=== PATIENT | female | born 1975 | race Caucasian/White ===

== ENCOUNTER 2018-03-02 01:01 | Emergency (ER) | payer MEDICAID ==
--- NOTE | 2018-03-02 02:02 | ED Physician Documentation ---
History of Present Illness - Stated complaint Stated Complaint: HIGH BLOOD PRESSURE - Chief complaint Chief Complaint: Cardiac - History obtained from History obtained from: Patient, Family - History of Present Illness Timing: How many weeks ago (1) - Additonal information Additional information: 42-year-old previously well female has developed some upper respiratory symptoms with a cough and congestion about 1 week ago she took some Mucinex and then begin to get some pressure in her chest and went to see her doctor. She was noted to have some high blood pressure and was started on some propranolol as well and discontinued the Mucinex. She states that she has been drinking a lot of fluid and has been urinating a lot. The patient reports that she has some central chest pressure that is worse when she takes a deep breath and she feels it is making it difficult for her to take a deep breath. She also reports that she is feeling lightheaded and dizzy when she is up and around and this is 1 of the reasons she went to see her doctor. She also notes a headache. Review of Systems Constitutional: reports: Fatigue. denies: Fever, Chills, Myalgias Eyes: denies: Photophobia Ears: denies: Ear pain Nose: reports: Rhinorrhea / runny nose, Congestion Throat: denies: Sore throat Cardiac: reports: Chest pain / pressure. denies: Palpitations, Pedal edema, Calf pain Respiratory: reports: Cough. denies: Dyspnea GI: denies: Abdominal Pain, Nausea, Vomiting : denies: Dysuria, Frequency PD PAST MEDICAL HISTORY - Present Medications Home Medications: Ambulatory Orders Medication Instructions Recorded Confirmed RX: Propranolol [Inderal] 40 mg PO BID 03/02/18 03/02/18 - Allergies Allergies/Adverse Reactions: Allergies Allergy/AdvReac Type Severity Reaction Status Date / Time hydrocodone Allergy Emesis Verified 03/02/18 01:12 oxycodone Allergy Emesis Verified 03/02/18 01:12 PD ED PE NORMAL - Vitals Vital signs reviewed: Yes (hypertensive) - General General: Alert and oriented X 3, No acute distress, Well developed/nourished - HEENT HEENT: Atraumatic, PERRL, EOMI, Ears normal, Other (dry mucous membranes ) - Neck Neck: Supple, no meningeal sign, No bony TTP - Cardiac Cardiac: RRR, No murmur - Respiratory Respiratory: No respiratory distress, Clear bilaterally, Other (central chest wall tenderness to palpation ) - Abdomen Abdomen: Soft, Non tender - Back Back: No CVA TTP, No spinal TTP - Derm Derm: Normal color, Warm and dry, No rash - Extremities Extremities: No deformity, No edema - Neuro Neuro: Alert and oriented X 3, business intelligence architect 2-12 intact, No motor deficit, No sensory deficit, Normal speech Eye Opening: Spontaneous Motor: Obeys Commands Verbal: Oriented GCS Score: 15 - Psych Psych: Normal mood, Normal affect Results - Vitals Vitals: Vital Signs - 24 hr 03/02/18 03/02/18 01:07 04:16 Temperature 36.6 C Heart Rate 67 66 Respiratory 17 16 Rate Blood Pressure 155/97 H 136/92 H O2 Saturation 99 98 Oxygen O2 Source Room air - EKG (time done) 0132 Rate: Rate (enter#) (57) Rhythm: NSR Ischemia: Normal ST segments Compare to prior EKG: Old EKG unavailable Computer interpretation: Agree with computer - Labs Labs: Laboratory Tests 03/02/18 03/02/18 03/02/18 02:29 02:29 02:29 WBC 9.0 RBC 4.88 Hgb 14.9 Hct 43.7 MCV 89.5 MCH 30.5 MCHC 34.1 RDW 13.0 Plt Count 269 MPV 8.0 Neut # (Auto) 4.0 Lymph # (Auto) 4.[address] [place] # (Auto) 0.7 Eos # (Auto) 0.2 Baso # (Auto) 0.1 Absolute Nucleated RBC 0.01 Nucleated RBC % 0.1 Sodium 136 Potassium 3.9 Chloride 106 Carbon Dioxide 23 Anion Gap 7.0 BUN 14 Creatinine 0.8 Estimated GFR (MDRD) 79 L Glucose 100 Calcium 9.4 Total Bilirubin 0.4 AST 33 ALT 34 Alkaline Phosphatase 58 Troponin I < 0.04 Total Protein 8.1 Albumin 4.4 Globulin 3.7 Albumin/Globulin Ratio 1.2 Lipase 29 - Rads (name of study) 2 veiw chest Radiology: Prelim report reviewed (Impression: Normal two-view chest radiography.), EMP read indepedently, See rad report Procedures - IVC sono (time) 0205 Bedside IVC sono: IVC measures (cm) (1.18), IVC collapsed c insp (cm) (complete), Dehydration (est 1 liter deficit) PD MEDICAL DECISION MAKING - ED course Complexity details: reviewed results, re-evaluated patient, considered differential, d/w patient, d/w family ED course: 42 y/o previously well female presents to the ED with headache, elevated blood pressure and chest pressure. She is found to be dehydrated on interrogation of the IVC and she has anterior chest wall tenderness reproducing her symptoms. She relates to me that on a prior exam she had fluid behind the TM and I do not see this today so assume resolved infection. She is administered IV saline and decadron for the pleuritic pain while work up is in progress. The work up is without specificity and the patient has marked improvement. Departure - Departure Disposition: 01 Home, Self Care Clinical Impression: Pleurisy Condition: Stable Instructions: ED Chest Pain Pleurisy Follow-Up: [facility] [Provider Group] Discharge Date/Time: 03/02/18 04:30
[2018-03-02] MEDS ORDERED: DEXAMETHASONE 10 MG/ML VIAL IVP STA (02:14)
[2018-03-02] MEDS ORDERED: SODIUM CHLORIDE 0.9% 1,000 ML IV ONE (02:14)
[2018-03-02 02:42] LABS: BASOPHILS # (AUTO) 0.1 10^3/uL (0.0-0.1); BASOPHILS % (AUTO) 0.9 %; EOSINOPHILS # (AUTO) 0.2 10^3/uL (0.0-0.7); HGB - HEMOGLOBIN 14.9 g/dL (12.0-16.0); LYMPHOCYTES % (AUTO) 44.4 %; MEAN CORPUSCULAR HEMOGLOBIN 30.5 pg (27.0-31.0); MEAN CORPUSCULAR HGB CONC 34.1 g/dL (32.0-36.0); MEAN CORPUSCULAR VOLUME 89.5 fL (81.0-99.0); MONOCYTES # (AUTO) 0.7 10^3/uL (0.0-1.0); MONOCYTES % (AUTO) 7.9 %; NEUTROPHILS % (AUTO) 44.8 %; PLT - PLATELET COUNT 269 10^3/uL (130-450); RED BLOOD COUNT 4.88 10^6/uL (4.20-5.40)
[2018-03-02 02:47] LABS: ALBUMIN 4.4 g/dL (3.2-5.5); ALBUMIN/GLOBULIN RATIO 1.2 (1.0-2.2); BILIRUBIN,TOTAL 0.4 mg/dL (0.2-1.0); CALCIUM 9.4 mg/dL (8.5-10.3); CREATININE 0.8 mg/dL (0.4-1.0); TOTAL PROTEIN 8.1 g/dL (6.7-8.2)
--- NOTE | 2018-03-02 02:57 | XRAY Report ---
Reason: central chest pressure Procedure Date: 03/02/2018 Accession Number: [id number] / [id number] Procedure: XR - Chest 2 View X-Ray CPT Code: 85396 FULL RESULT: EXAM: CHEST RADIOGRAPHY EXAM DATE: 03/02/2018 02:20 AM. CLINICAL HISTORY: Central chest pressure. COMPARISON: None. TECHNIQUE: 2 views. FINDINGS: Lungs/Pleura: No focal opacities evident. No pleural effusion. No pneumothorax. Normal volumes. Mediastinum: Heart and mediastinal contours are unremarkable. Other: None. IMPRESSION: Normal 2-view chest radiography. RADIA
[2018-03-02 04:17] VITALS: BP 136/92
== END 2018-03-02 04:30 | disposition home or self-care (01) ==
LOC: ED 01:01
DX: R09.1 Pleurisy (principal); E86.0 Dehydration; R03.0 Elevated blood-pressure reading, without diagnosis of hypertension
CPT/HCPCS: 36415; 71046; 80053; 83690; 84484; 85025; 93005; 96361; 96374; 99283; 99284

== ENCOUNTER 2018-03-08 11:09 | Outpatient (CLI) | payer MEDICAID ==
[2018-03-08 19:30] LABS: BASOPHILS % (AUTO) 0.5 %; EOSINOPHILS # (AUTO) 0.1 10^3/uL (0.0-0.7); EOSINOPHILS % (AUTO) 1.3 %; HGB - HEMOGLOBIN 14.9 g/dL (12.0-16.0); LYMPHOCYTES # (AUTO) 3.5 10^3/uL (1.5-3.5); LYMPHOCYTES % (AUTO) 35.3 %; MEAN CORPUSCULAR HGB CONC 32.5 g/dL (32.0-36.0); MEAN CORPUSCULAR VOLUME 92.3 fL (81.0-99.0); MEAN PLATELET VOLUME 8.9 fL (7.9-10.8); MONOCYTES # (AUTO) 0.5 10^3/uL (0.0-1.0); MONOCYTES % (AUTO) 4.7 %; NEUTROPHILS # (AUTO) 5.8 10^3/uL (1.5-6.6); NEUTROPHILS % (AUTO) 58.2 %; PLT - PLATELET COUNT 266 10^3/uL (130-450); RED BLOOD COUNT 4.98 10^6/uL (4.20-5.40); WHITE BLOOD COUNT 9.9 x10^3/uL (4.8-10.8)
[2018-03-08 20:03] LABS: ALBUMIN 4.1 g/dL (3.2-5.5); ALBUMIN/GLOBULIN RATIO 1.2 (1.0-2.2); ALKALINE PHOSPHATASE 56 IU/L (42-121); ALT ALANINE AMINOTRANSFERASE 29 IU/L (10-60); AST ASPARTATE AMINOTRANSFERASE 23 IU/L (10-42); BILIRUBIN,TOTAL 0.6 mg/dL (0.2-1.0); BUN - BLOOD UREA NITROGEN 12 mg/dL (6-20); CALCIUM 8.9 mg/dL (8.5-10.3); CARBON DIOXIDE - CO2 22 mmol/L (21-32); CHLORIDE 103 mmol/L (101-111); CHOL/HDL RATIO 6.2 (<4.4); CHOLESTEROL 255 mg/dL; CREATININE 0.6 mg/dL (0.4-1.0); GFR - MDRD 111 (>89); GLUCOSE 91 mg/dL (70-100); HDL CHOLESTEROL 41 mg/dL; LDL CHOLESTEROL,CALCULATED 162 mg/dL; SODIUM 133 mmol/L (135-145); TOTAL PROTEIN 7.5 g/dL (6.7-8.2); VLDL CHOLESTEROL 52 mg/dL
[2018-03-08 20:27] LABS: PLATELET ESTIMATE, MANUAL NORMAL (130-450,000) (NORMAL); PLATELET MORPHOLOGY NORMAL APPEARANCE (NORMAL); RBC MORPHOLOGY (MULTIPLE) NORMAL APPEARANCE (NORMAL)
== END 2018-03-08 11:10 ==
LOC: LAB.N 11:09
PROVIDERS: ATTEND Nurse Practitioner Gerontology
DX: Z13.9 Encounter for screening, unspecified (principal); E78.2 Mixed hyperlipidemia; I10 Essential (primary) hypertension
CPT/HCPCS: 36415; 80053; 80061; 83721; 84443; 85025

== ENCOUNTER 2018-03-30 14:33 | Outpatient (CLI) | payer MEDICAID ==
--- NOTE | 2018-04-02 08:58 | Mammography Report ---
Reason: SCREENING MAMMO Procedure Date: 03/30/2018 Accession Number: [id number] / [id number] Procedure: JACEY - Screening Mammo w/Leif CPT Code: FULL RESULT: EXAM: Screening Mammo w/Leif DATE: 03/30/2018 3:11 PM CLINICAL HISTORY: Screening encounter. No known risk factors. TECHNIQUE: Bilateral CC and MLO views were obtained. COMPARISON: Baseline mammogram. FINDINGS: The breasts demonstrate scattered fibroglandular densities bilaterally. No suspicious masses, clustered microcalcifications, or regions of architectural distortion are identified. IMPRESSION: Negative examination RECOMMENDATION: Routine annual screening unless otherwise clinically indicated. BIRADS CATEGORY 1: Negative STANDARD QUALIFYING STATEMENTS: 1. This examination was not reviewed with the aid of Computer-Aided Detection (CAD). 2. A negative or benign imaging report should not preclude biopsy if clinically suspicious findings are present. 3. Dense breasts may obscure an underlying neoplasm. 4. This examination was reviewed with the aid of 3D breast imaging (tomosynthesis).
== END 2018-03-30 14:34 | disposition home or self-care (01) ==
LOC: DI 14:33
PROVIDERS: ATTEND Nurse Practitioner Gerontology
DX: Z12.39 Encounter for other screening for malignant neoplasm of breast (principal)
CPT/HCPCS: 77063; 77067

== ENCOUNTER 2018-11-01 08:00 | Outpatient (CLI) | payer MEDICAID ==
[2018-11-01 18:57] LABS: ALBUMIN/GLOBULIN RATIO 1.1 (1.0-2.2); ALKALINE PHOSPHATASE 65 IU/L (42-121); ALT ALANINE AMINOTRANSFERASE 23 IU/L (10-60); AST ASPARTATE AMINOTRANSFERASE 20 IU/L (10-42); BILIRUBIN,TOTAL 0.8 mg/dL (0.2-1.0); BUN - BLOOD UREA NITROGEN 12 mg/dL (6-20); CARBON DIOXIDE - CO2 22 mmol/L (21-32); CHLORIDE 106 mmol/L (101-111); CHOL/HDL RATIO 5.6 (<4.4); CHOLESTEROL 236 mg/dL; CREATININE 0.7 mg/dL (0.4-1.0); GFR - MDRD 92 (>89); GLUCOSE 100 mg/dL (70-100); HDL CHOLESTEROL 42 mg/dL; LDL CHOLESTEROL,CALCULATED 155 mg/dL; LDL/HDL RATIO 3.7 (<4.4); SODIUM 138 mmol/L (135-145); TOTAL PROTEIN 7.7 g/dL (6.7-8.2); VLDL CHOLESTEROL 39 mg/dL
== END 2018-11-01 23:59 | disposition home or self-care (01) ==
LOC: LAB.WCP 08:00
PROVIDERS: ATTEND Nurse Practitioner Gerontology
DX: E78.2 Mixed hyperlipidemia (principal); I10 Essential (primary) hypertension
CPT/HCPCS: 36415; 80053; 80061; 83721

== ENCOUNTER 2019-01-24 11:38 | Outpatient (CLI) | payer MEDICAID ==
--- NOTE | 2019-01-24 13:48 | XRAY Report ---
Reason: CERVICAL RADICULOPATHY Procedure Date: 01/24/2019 Accession Number: [id number] / [id number] Procedure: XRN - Cervical Spine 2 View CPT Code: FULL RESULT: EXAM: CERVICAL SPINE RADIOGRAPHY EXAM DATE: 01/24/2019 11:56 AM. CLINICAL HISTORY: Cervical radiculopathy. COMPARISONS: None. TECHNIQUE: 3 views. FINDINGS: Alignment: Loss of normal cervical lordosis. Bones: The cervical vertebral bodies and posterior elements are well visualized from the skull base through C7-T1. No fractures or bone lesions. Disks: No significant disk height narrowing. No subluxation. Facets: No degenerative disease. Soft Tissues: Normal. No prevertebral soft tissue swelling. The visualized lung apices are clear. IMPRESSION: 1. Loss of normal cervical lordosis. 2. Otherwise unremarkable exam. RADIA
== END 2019-01-24 11:39 | disposition home or self-care (01) ==
LOC: DI.N 11:38
PROVIDERS: ATTEND Family Medicine
DX: M54.12 Radiculopathy, cervical region (principal)
CPT/HCPCS: 72040

== ENCOUNTER 2022-07-08 11:31 | Emergency (ER) | payer MEDICAID ==
[2022-07-08 12:21] LABS: BASOPHILS % (AUTO) 0.4 %; EOSINOPHILS # (AUTO) 0.2 10^3/uL (0.0-0.7); EOSINOPHILS % (AUTO) 1.4 %; HCT - HEMATOCRIT 45.5 % (37.0-47.0); MEAN CORPUSCULAR HEMOGLOBIN 31.1 pg (27.0-31.0); MEAN CORPUSCULAR VOLUME 94.2 fL (81.0-99.0); MEAN PLATELET VOLUME 10.1 fL (7.9-10.8); MONOCYTES # (AUTO) 0.6 10^3/uL (0.0-1.0); MONOCYTES % (AUTO) 5.6 %; NEUTROPHILS # (AUTO) 7.2 10^3/uL (1.5-6.6); NEUTROPHILS % (AUTO) 65.3 %; PLT - PLATELET COUNT 251 10^3/uL (130-450); RED BLOOD COUNT 4.83 10^6/uL (4.20-5.40); RED CELL DISTRIBUTION WIDTH 12.2 % (12.0-15.0); WHITE BLOOD COUNT 11.1 x10^3/uL (4.8-10.8)
[2022-07-08 12:32] LABS: ALBUMIN 4.2 g/dL (3.2-5.5); ALBUMIN/GLOBULIN RATIO 1.2 (1.0-2.2); BILIRUBIN,TOTAL 0.4 mg/dL (0.2-1.0); CREATININE 0.7 mg/dL (0.4-1.0); POTASSIUM 4.1 mmol/L (3.5-5.0); TOTAL PROTEIN 7.8 g/dL (6.7-8.2)
[2022-07-08 12:57] LABS: BILIRUBIN,URINE NEGATIVE (NEGATIVE); GLUCOSE, URINE (UA) NEGATIVE (NEGATIVE); KETONES,URINE (UA) NEGATIVE (NEGATIVE); LEUKOCYTE ESTERASE, URINE NEGATIVE (NEGATIVE); NITRITE,URINE NEGATIVE (NEGATIVE); OCCULT BLOOD,URINE NEGATIVE (NEGATIVE); PH,URINE 5.5 PH (5.0-7.5); PROTEIN,URINE NEGATIVE (NEGATIVE); UROBILINOGEN,URINE 0.2 (NORMAL) E.U./dL (NORMAL)
[2022-07-08 12:59] LABS: CLARITY,URINE CLEAR (CLEAR); HCG UR QUAL NEGATIVE
[2022-07-08] MEDS ORDERED: KETOROLAC 30 MG/ML VIAL IVP STA (13:06)
--- NOTE | 2022-07-08 13:09 | ED Physician Documentation ---
History of Present Illness - Stated complaint Stated Complaint: LOWER BACK PX - Chief complaint Chief Complaint: Abd Pain - Additonal information Additional information: 46-year-old female presents to the emergency department for evaluation of right lower back pain that radiates to her anterior lower abdomen. Pain began about a week ago. She reports it began at rest. It has waxed and waned in severity though over the last few days has been uncontrollable. She has tried Tylenol and ibuprofen without relief of symptoms. Reports allergies to Vicodin and Percocet. Past surgical history most significant for only. Denies dysuria urgency or frequency. No nausea or vomiting. Pain is not improved with micturition. Denies constipation. No previous history of renal colic. 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 - Present Medications Home Medications: Ambulatory Orders Medication Instructions Recorded Confirmed Propranolol [Inderal] 40 mg PO BID 03/02/18 03/02/18 Cyclobenzaprine [Flexeril] 10 mg PO TID PRN #20 tablet 07/08/22 Ibuprofen [Motrin] 600 mg PO Q6H PRN #30 tab 07/08/22 - Allergies Allergies/Adverse Reactions: Allergies Allergy/AdvReac Type Severity Reaction Status Date / Time hydrocodone Allergy Emesis Verified 07/08/22 11:46 oxycodone Allergy Emesis Verified 07/08/22 11:46 - Social History Does the pt smoke?: Yes Smoking Status: Current some day smoker Does the pt drink ETOH?: Yes Does the pt have substance abuse?: No - POLST Patient has POLST: No PD ED PE NORMAL - General General: Alert and oriented X 3, Well developed/nourished. No: No acute distress (Appears uncomfortable with any movement in the low back) - HEENT HEENT: PERRL - Neck Neck: Supple, no meningeal sign, No adenopathy - Cardiac Cardiac: RRR, No murmur - Respiratory Respiratory: No respiratory distress, Clear bilaterally - Abdomen Abdomen: Normal bowel sounds, Soft. No: Non tender (Tenderness in the right lower quadrant. No guarding or rebound.) - Back Back: No CVA TTP, No spinal TTP. No: Other (Mild tenderness elicited with palpation of the right lower paraspinous muscles just above the SI joint. No rash.) - Derm Derm: Normal color, Warm and dry, No rash - Extremities Extremities: No deformity - Neuro Neuro: Alert and oriented X 3, tray server 2-12 intact Eye Opening: Spontaneous Motor: Obeys Commands Verbal: Oriented GCS Score: 15 Results - Vitals Vitals: Vital Signs - 24 hr 07/08/22 11:43 Temperature 36.3 C L Heart Rate 73 Respiratory 16 Rate Blood Pressure 164/76 H O2 Saturation 97 Oxygen O2 Source Room air - Labs Labs: Laboratory Tests 07/08/22 07/08/22 07/08/22 11:55 12:11 12:11 WBC 11.1 H RBC 4.83 Hgb 15.0 Hct 45.5 MCV 94.2 MCH 31.1 H MCHC 33.0 RDW 12.2 Plt Count 251 MPV 10.1 Neut # (Auto) 7.2 H Lymph # (Auto) 3.0 [place] # (Auto) 0.6 Eos # (Auto) 0.2 Baso # (Auto) 0.0 Absolute Nucleated RBC 0.00 Nucleated RBC % 0.0 Sodium 136 Potassium 4.1 Chloride 108 Carbon Dioxide 21 Anion Gap 7.0 BUN 13 Creatinine 0.7 Estimated GFR (MDRD) 91 Glucose 97 Calcium 9.0 Total Bilirubin 0.4 AST 23 ALT 28 Alkaline Phosphatase 54 Total Protein 7.8 Albumin 4.2 Globulin 3.6 Albumin/Globulin Ratio 1.2 Lipase 37 Urine Color YELLOW Urine Clarity CLEAR Urine pH 5.5 Ur Specific [place] 1.025 Urine Protein NEGATIVE Urine Glucose (UA) NEGATIVE Urine Ketones NEGATIVE Urine Occult Blood NEGATIVE Urine Nitrite NEGATIVE Urine Bilirubin NEGATIVE Urine Urobilinogen 0.2 (NORMAL) Ur Leukocyte Esterase NEGATIVE Ur Microscopic Review NOT INDICATED Urine Culture Comments NOT INDICATED Urine HCG, Qual NEGATIVE - Rads (name of study) CT abd Relevant Findings:: Final report received (No acute abnormality. No nephrolithiasis. Normal appendix.) PD Medical Decision Making - ED course Complexity details: reviewed results, re-evaluated patient, considered differential, d/w patient ED course: Well-appearing 46-year-old female presents to the emergency department for evaluation of acute right low back pain with radiation to her right lower anterior abdomen. Symptoms have been present for about a week. No falls or trauma. No fevers. No urinary symptoms. Here in the emergency department we did obtain a CBC electrolytes and urinalysis. Per my interpretation no acute worrisome findings. On exam there was some mild tenderness elicited in the right lower quadrant though no guarding or rebound. There was significant tenderness elicited just above the SI joint of the right low back. I suspected musculoskeletal pain or low back strain but given the radiation to the anterior abdomen I did want to rule out acute appendicitis or an obstructing urinary stone. Subsequently a CT of the abdomen was completed that showed no acute findings specifically no appendicitis or nephro/ureterolithiasis. Here in the emergency department the patient was administered 30 mg of Toradol IV with good relief of symptoms. I discussed with the patient the essentially negative labs and CT imaging findings. At this time she will be discharged home with recommendation to take 600 mg of Motrin with food 2-3 times a day and nighttime Flexeril. If not markedly improved over the next week or so may benefit from referral to physical therapy. Otherwise emergent return precautions otherwise discussed Departure - Departure Disposition: 01 Home, Self Care Clinical Impression: Right low back pain Qualifiers: Chronicity: acute Sciatica presence: without sciatica Qualified Code(s): M54.50 - Low back pain, unspecified Condition: Stable Record reviewed to determine appropriate education?: Yes Prescriptions: Cyclobenzaprine [Flexeril] 10 mg PO TID PRN #20 tablet PRN Reason: Spasms Ibuprofen [Motrin] 600 mg PO Q6H PRN #30 tab PRN Reason: Pain Comments: Zandra you came to the emergency department because you have begun having pain in your right lower back that radiates to your lower anterior abdomen. Here in the emergency department we did do a CBC, electrolytes and a urinalysis. These were all essentially normal. However as there was concern that the cause your pain could be due to an obstructing ureter stone or even acute appendicitis a CT of the abdomen was completed. The CT was also essentially normal. There were no findings of appendicitis, nephrolithiasis or broken bones. As we discussed I suspect that you have low back strain. In general with lumbar sprain and strain it is important that you stay mobile and walk is much as possible. I do recommend you take ibuprofen 600 mg with food 2-3 times a day. This was sent to the [facility] drug. I am also making the recommendation that you use Flexeril mostly at nighttime as it can cause dizziness. This is a muscle relaxer. If you find that your symptoms or not getting better over the next week or so please follow-up with your primary care provider. You may benefit from referral to physical therapy. Return sooner to the emergency department if you develop fevers, have worsening symptoms, uncontrolled nausea, vomiting or bloody stools.
[2022-07-08] MEDS ORDERED: iohexoL-300 100 ML VIAL ONE (13:38)
--- NOTE | 2022-07-08 14:32 | CT Report ---
PROCEDURE: ABDOMEN/PELVIS W INDICATIONS: right low back/RLQ pain; ? stone vs appy CONTRAST: 100ml omni 300 TECHNIQUE: After the administration of intravenous contrast, 5 mm thick sections acquired from the diaphragms to the symphysis. 5 mm thick coronal and sagittal reformats were acquired. For radiation dose reducti on, the following was used: automated exposure control, adjustment of mA and/or kV according to sarah ent size. COMPARISON: None. FINDINGS: Image quality: Excellent. ABDOMEN: Lung bases: Lung bases are clear. Heart size is normal. Solid organs: Liver and spleen are normal in size and enhancement. Gallbladder is unremarkable Vinayak iary system is non dilated. Pancreas enhances normally. No adrenal nodules. Kidneys demonstrate no rmal size and enhancement, without hydronephrosis. Peritoneum and bowel: Bowel loops demonstrate normal wall thickness and caliber. No free fluid or a ir. Normal appendix. Nodes and vessels: No retroperitoneal or mesenteric adenopathy by size criteria. Aorta and inferior vena cava are normal in size. Miscellaneous: No ventral hernias. PELVIS: Genitourinary: Bladder wall thickness is normal. Right-sided corpus luteum. Miscellaneous: No inguinal hernias or adenopathy. Bones: No suspicious bony lesions. No vertebral body compression fractures. IMPRESSION: No acute abnormality. No nephrolithiasis. Normal appendix. Reviewed by: Osmar Chand on 07/08/2022 2:31 PM PDT Approved by: Osmar Chand on 07/08/2022 2:31 PM PDT Station ID: [id number]
[2022-07-08 14:57] VITALS: BP 118/74
[2022-07-08] MEDS ORDERED: iohexoL-300 100 ML VIAL IVP ONE (19:02)
== END 2022-07-08 15:06 | disposition home or self-care (01) ==
LOC: ED 11:31
DX: M54.50 Low back pain, unspecified (principal); F17.200 Nicotine dependence, unspecified, uncomplicated
CPT/HCPCS: 36415; 74177; 80053; 81003; 81025; 83690; 85025; 96374; 99284; Q9967; 81001; 87086

== ENCOUNTER 2022-09-26 11:33 | Outpatient (CLI) | payer MEDICAID ==
[2022-09-26 17:59] LABS: BASOPHILS % (AUTO) 0.4 %; EOSINOPHILS # (AUTO) 0.2 10^3/uL (0.0-0.7); EOSINOPHILS % (AUTO) 2.5 %; HCT - HEMATOCRIT 46.3 % (37.0-47.0); HGB - HEMOGLOBIN 14.9 g/dL (12.0-16.0); LYMPHOCYTES # (AUTO) 2.8 10^3/uL (1.5-3.5); LYMPHOCYTES % (AUTO) 29.1 %; MEAN CORPUSCULAR HEMOGLOBIN 30.8 pg (27.0-31.0); MEAN CORPUSCULAR HGB CONC 32.2 g/dL (32.0-36.0); MEAN CORPUSCULAR VOLUME 95.9 fL (81.0-99.0); MEAN PLATELET VOLUME 10.7 fL (7.9-10.8); MONOCYTES # (AUTO) 0.5 10^3/uL (0.0-1.0); NEUTROPHILS # (AUTO) 5.9 10^3/uL (1.5-6.6); NEUTROPHILS % (AUTO) 62.8 %; PLT - PLATELET COUNT 245 10^3/uL (130-450); RED BLOOD COUNT 4.83 10^6/uL (4.20-5.40); WHITE BLOOD COUNT 9.4 x10^3/uL (4.8-10.8)
[2022-09-26 18:35] LABS: ALKALINE PHOSPHATASE 60 IU/L (42-121); ALT ALANINE AMINOTRANSFERASE 22 IU/L (10-60); AST ASPARTATE AMINOTRANSFERASE 19 IU/L (10-42); BILIRUBIN,TOTAL 0.5 mg/dL (0.2-1.0); BUN - BLOOD UREA NITROGEN 11 mg/dL (6-20); CARBON DIOXIDE - CO2 28 mmol/L (21-32); CHLORIDE 104 mmol/L (101-111); CHOLESTEROL 240 mg/dL; CREATININE 0.8 mg/dL (0.4-1.0); GFR - MDRD 78 (>89); GLUCOSE 95 mg/dL (70-100); HDL CHOLESTEROL 48 mg/dL; LDL CHOLESTEROL,CALCULATED 159 mg/dL; LDL/HDL RATIO 3.3 (<4.4); POTASSIUM 4.5 mmol/L (3.5-5.0); SODIUM 138 mmol/L (135-145); TRIGLYCERIDES 164 mg/dL; VLDL CHOLESTEROL 33 mg/dL
== END 2022-09-26 11:34 | disposition home or self-care (01) ==
LOC: LAB.N 11:33
PROVIDERS: ATTEND Nurse Practitioner
DX: Z00.00 Encounter for general adult medical examination without abnormal findings (principal); E78.2 Mixed hyperlipidemia
CPT/HCPCS: 36415; 80053; 80061; 83721; 85025

== ENCOUNTER 2023-10-10 03:00 | Emergency (ER) | payer MEDICAID ==
[2023-10-10] MEDS: PROPARACAINE 0.5% OPHTH DROPS 15 ML RIGHTEYE STA (03:14)
[2023-10-10 03:15] VITALS: BP 144/80; O2SAT 98
--- NOTE | 2023-10-10 03:51 | ED Physician Documentation ---
PD HPI HEENT - Stated complaint Stated Complaint: OBJECT IN L EYE - Chief complaint Chief Complaint: Heent - History obtained from History obtained from: Patient - Additional information Additional information: The patient comes to the emergency department with chief complaint of left I have irritation that started around 9:00 last night. She states that she is allergic to cat hair that she has cut her over her close because she has cats. She went to brush something off her face and felt as though something went in her eye. She thinks it might have been a cat hair but though she tried looking in the mirror and having her family look in her eye, she could not find anything in her eye. She states her eye lares a lot and then she tried washing it out but the sensation did not get better but only worse. The patient finally tried going to bed to see if the irritation and pain will get better but it did not. She is finally come here because she cannot sleep because of the discomfort. Estrella wilkinson has not been ill recently. She does not wear contacts. No other complaints at this time. 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 Home Medications: Ambulatory Orders Medication Instructions Recorded Confirmed Propranolol [Inderal] 40 mg PO BID 03/02/18 03/02/18 Cyclobenzaprine [Flexeril] 10 mg PO TID PRN #20 tablet 07/08/22 Ibuprofen [Motrin] 600 mg PO Q6H PRN #30 tab 07/08/22 Gentamicin 0.3% Ophth Drops 1 drops OPTH BID #5 ml 10/10/23 [Garamycin] - Allergies Allergies/Adverse Reactions: Allergies Allergy/AdvReac Type Severity Reaction Status Date / Time hydrocodone Allergy Emesis Verified 10/10/23 03:07 oxycodone Allergy Emesis Verified 10/10/23 03:07 - Social History Does the pt smoke?: Yes Smoking Status: Current every day smoker Does the pt drink ETOH?: Yes Does the pt have substance abuse?: No - POLST Patient has POLST: No PD ED PE NORMAL - Vitals Vital signs reviewed: Yes - General General: Alert and oriented X 3, No acute distress, Well developed/nourished - HEENT HEENT: Atraumatic, PERRL, EOMI, Moist mucous membranes, Other (Moderately injec em left eye with tearing, no other discharge. No foreign body noted with magnification and bright light. Lids everted for exam. Fluorescein exam negative.) - Neck Neck: Supple, no meningeal sign - Respiratory Respiratory: No respiratory distress - Derm Derm: Warm and dry - Extremities Extremities: No deformity - Neuro Neuro: Alert and oriented X 3 - Psych Psych: Normal mood, Normal affect Results - Vitals Vitals: Vital Signs - 24 hr 10/10/23 03:05 Temperature 36.2 C L Heart Rate 77 Respiratory 18 Rate Blood Pressure 144/80 H O2 Saturation 98 Oxygen O2 Source Room air PD Medical Decision Making - ED course Complexity details: considered differential, d/w patient ED course: I discussed with the patient that I do not see any evidence not only of a foreign body but even of a scratch or abrasion. I do not know what is causing her discomfort, though it is possible that there is a hair that has made its way up into the recesses of her eye. The patient's eye has been irrigated with Fransisco lens and 500 cc of 0.9 normal saline. The patient is found great relief with the proparacaine drops and remains to be seen whether her symptoms will be improved once this wears off. I will start the patient on antibiotic drops as a precaution and I have given her the contact information for the ophthalmology clinic, should she continue to have symptoms after the next week. There is no evidence of a potentially vision-compromising emergency and I feel the patient is stable for discharge home. We have discussed the usual indications for return. Departure - Departure Disposition: 01 Home, Self Care Clinical Impression: Foreign body sensation, left eye Acute conjunctivitis Qualifiers: Acute conjunctivitis type: unspecified Laterality: left Qualified Code(s): H10.32 - Unspecified acute conjunctivitis, left eye Condition: Stable Instructions: ED Conjunctivitis Nonspecific Follow-Up: Missael Garces MD [Provider Admit Priv/Credential] - Prescriptions: Gentamicin 0.3% Ophth Drops [Garamycin] 1 drops OPTH BID #5 ml Comments: Your eye is inflamed and irritated but there is no evidence of a foreign piece of material of any size, Despite examination with magnification and dye. I have looked under your lids to see if there is anything stuck to the lids themselves or hiding in the recesses of your eye and have not been able to find anything. We have rinsed the anterior eye and eyelids that entire bag of saline solution, and if there is anything left in your eye as far as foreign material, hopefully this is washed it out. If the numbing drops were off and you still feel like there is something in your eye, you should follow-up with the elementary reading specialist. Please call their office for an appointment. There is also possibility that thi s is simply a case of pinkeye. A prescription for antibiotic drops has been electronically transmitted to the [facility] pharmacy in [place], your pharmacy of choice on record. You may pick this up and begin taking the drops if you are irritation persist for more than another day. You may take ibuprofen and Tylenol to help with discomfort as well. Forms: PCP List Discharge Date/Time: 10/10/23 03:57
== END 2023-10-10 03:57 | disposition home or self-care (01) ==
LOC: ED 03:00
DX: H57.8A2 Foreign body sensation, left eye (principal); H10.32 Unspecified acute conjunctivitis, left eye; F17.200 Nicotine dependence, unspecified, uncomplicated
CPT/HCPCS: 99283; J3490